=== PATIENT | male | born 1975 | race Caucasian/White ===

== ENCOUNTER 2017-08-27 13:09 | Emergency (ER) | payer SELFPAY ==
[~2017-08-27] VITALS: Ht 177.8 cm; Wt 87.3 kg
[2017-08-27 14:17] VITALS: BP 144/108
--- NOTE | 2017-08-27 16:40 | NUR ---
Patient being evaluated by physician at bedside.
[2017-08-27 17:10] VITALS: BP 140/76
--- NOTE | 2017-08-27 17:10 | NUR ---
Patient discharged with v/s stable. Written and verbal after care instructions given and explained. Patient alert, oriented and verbalized understanding of instructions. Ambulatory with steady gait. All questions addressed prior to discharge. ID band removed. Patient advised to follow up with PMD. Opportunity to ask questions provided and answered.
== END 2017-08-27 17:10 | disposition home or self-care (01) ==
LOC: MED 13:09
DX: R19.7 Diarrhea, unspecified (principal); R50.9 Fever, unspecified; R03.0 Elevated blood-pressure reading, without diagnosis of hypertension
CPT/HCPCS: 99281